=== PATIENT | male | born 1945 | race Caucasian/White ===

== ENCOUNTER 2016-08-10 10:08 | Emergency (ER) | payer OTHER ==
[~2016-08-10] VITALS: Wt 70.5 kg
--- NOTE | 2016-08-10 10:32 | ERD ---
ER Documentation Chief Complaint Date/Time DATE: 08/10/16 TIME: 10:31 Chief Complaint R. FOOT/HEEL PAIN HPI 71-year-old male who presented emergency department for right ankle/heel/foot pain/swelling. Patient stated that he was hiking yesterday, slipped, fell (3-5 foot high), landed on his right heel. Stated that he was unable to bear weight on the right foot after the fall. Denies headache, head injury, loss of consciousness, dizziness, dizziness prior to fall, blurry vision, changes in vision, photophobia, facial pain, ear pain, throat pain, difficulty swallowing, neck pain, shoulder pain, chest pain, cough , hemoptysis, abdominal pain, back pain, loss of appetite, nausea, vomiting, hematochezia, diarrhea, constipation, urinary symptoms, bladder and bowel incontinences, numbness or tingling sensation, recent travel, recent exposure to illness, recent antibiotic use in the last 3 months, fever, chills. Allergy: Penicillin. PMH: Hypertension. Medications: Lotensin. Surgery: Denies. Family history: Denies. Primary Social History: Stated that he is semiretired. Denies smoking, use of alcohol, use of illegal drugs. ROS All systems reviewed and are negative except as per history of present illness. Medications Home Meds Active Scripts Hydrocodone/Acetaminophen ([place] 5-325 Tablet) 1 Each Tablet, 1 TAB PO Q6H Y for PAIN, #20 TAB Prov:EMILI JUSTICE 08/10/16 Allergies Allergies: Coded Allergies: No Known Allergy (Unverified , 08/10/16) Physical Exam Vitals Vital Signs Date Time Temp Pulse Resp B/P Pulse Ox O2 Delivery O2 Flow Rate FiO2 08/10/16 13:18 98.3 78 18 156/65 100 Room Air 08/10/16 10:11 98.2 90 20 163/98 98 Physical Exam CONSTITUTIONAL: Well-appearing; well-nourished; in no apparent distress. HEAD: Normocephalic; atraumatic. EYES: Conjunctiva clear, sclera non-icteric, EOM intact. PERRL Ears: Hearing intact. EACs clear, TMs non-bulging, non-inflamed, translucent & mobile, ossicles normal appearance, No obstructions, no erythema, no discharges Nose: No obstructions. No polyps. No external lesions. Mucosa non-inflamed. No external lesions, septum and turbinates normal. No rhinorrhea. No discharges. Frontal sinus is non-tender to palpation. Maxillary sinus is non-tender to palpation. MOUTH: Moist mucous membranes, no lesion, no obstructions, no vesicles, no thrush, patent airway Throat: Uvula in midline. Right tonsil is +1 with no erythema, no exudate. Left tonsil is +1 with no erythema, no exudate. Tolerating secretions well. Good gag reflex. Patent airway. Neck: Supple, without lesions, bruits, or adenopathy. No mass. Thyroid non- enlarged and non-tender to palpation. CHEST: Symmetrical chest. Respirations even and not labored. No retractions noted. CARDIOVASCULAR: Normal S1, S2. RRR. No murmurs, gallops. RESPIRATORY: Normal chest excursion with respiration; breath sounds clear and equal bilaterally; no wheezes, rhonchi, or rales. Breathing even and unlabored. Speaking in clear, full, and complete sentences w/ ease. ABDOMEN: Normal bowel sounds normal. Soft, round, non-distended, non-guarding, no tenderness, no rebound, no organomegaly, no masses, no pulsating abdominal mass. No hernia. No peritoneal signs. : No CVA tenderness. BACK: Symmetrical shoulder. Spine is midline without deformity, tenderness. No evidence of trauma or deformity. PELVIS: Stable pelvis. No evidence of trauma or deformity. MUSCULOSKELETAL: Normal gait and station. No misalignment, asymmetry, crepitation, defects, tenderness, masses, effusions, decreased range of motion, instability, atrophy or abnormal strength or tone in the head, neck, spine, ribs , pelvis or extremities except right ankle has obvious deformity/swelling/ tenderness with limited range of motion and right foot has swelling with deformity/tenderness/limited range of motion. Right pedal pulse is good. Right knee is unremarkable. Bilateral hips are unremarkable. Left lower extremities unremarkable. Good and full range of motion of neck and spine. There is no C-spine/T-spine/L-spine swelling/tenderness/deformity and limitation in range of motion. No neurovascular deficits. No calf tenderness. NEUROVASCULAR: Distal pulses are present. Pedal pulse are present, equal, and normal. Capillary refills are < 2 seconds. NEUROLOGIC: Alert and oriented x4. Speaks full and clear sentences. Cranial Nerves II-XII normal. Sensation to pain, touch, and proprioception normal. Grossly unremarkable. No neurologic deficits. Romberg test is negative. PSYCHOLOGICAL: The patients mood and manner are appropriate. No hallucinations , delusions. Not SI. Not HI. Has the capacity to decide for self SKIN: Normal for age and ethnicity; warm; dry; good turgor; no apparent lesions or exudates. No rashes, hives, discoloration. Intact. Results 24 hrs Current Medications Medications (Trade) Dose Ordered Sig/Rubens Route PRN Reason Start Time Stop Time Status Last Admin Dose Admin Acetaminophen/ Hydrocodone Bitart ([place] (5/325)) 1 tab ONCE ONCE PO 08/10/16 11:00 08/10/16 11:01 DC 08/10/16 10:46 Procedures/MDM Examination: Please see physical examination. Disease process, medical treatment was explained to the patient and family member. They verbalized understanding and agreed with the diagnostic tests, medical treatment, and follow-up care. Radiology: X-ray of the right foot Impression: Mildly displaced fracture of the calcaneus. X-ray of the right ankle Impression: Lateral soft tissue swelling. Nondisplaced fracture of the calcaneus. X-ray of the lumbar spine Impression: Mild degenerative spondylosis. No acute fracture or compression. Case was discussed with supervising emergency room physician, Dr. Edward Hutchison who agreed with my medical decision making. He also stated that he will call ortho health education specialist for this patient. Treatment: [place]. Ortho shoe. Re-evaluation: Denies headache, dizziness, blurry vision, neck pain, shoulder pain, chest pain, back pain, abdominal pain. No episode of emesis in the emergency department. No neurovascular deficit prior to and after the application of right ortho shoe. No neurological deficits. Dr. Edward Hutchison and I read evidence-based practices regarding calcaneus which we gathered information the calcaneus fracture is usually managed by surgery which has good results but could still wait for about 10-14 days without surgery if there is no neurovascular deficits and good follow-up with a orthopedic doctor. Consultation: Dr. Schneider (ortho) by Dr. Edward Hutchison. Differential diagnosis: Fracture versus dislocation versus contusion versus sprain Medical decision m[age]-year-old male who presented emergency department for right ankle/heel/foot pain/swelling. Patient stated that he was hiking yesterday, slipped, fell (3-5 foot high), landed on his right heel. Stated that he was unable to bear weight on the right foot after the fall. Patient's complaint, patient's history about his complaint, my physical findings, diagnostic test results, my reevaluation are consistent my final diagnosis of mildly displaced fracture of the right calcaneus. Dr. Edward Hutchison spoke with also on-call, Dr. Schneider who suggested to put patient on right boot, nonweightbearing, crutches, follow-up with him or his own orthopedic doctor in the next week. Patient was instructed on all the suggestions of Dr. Edward Hutchison and Dr. Schneider (ortho). Patient verbalized understanding. Medications prescribed are the following: [place]. Patient and family member are made aware of the side effects and adverse reactions of the medications prescribed. Instructed on when to seek emergent and medical attention in case allergic/anaphylactic reactions or severe side effects and or adverse reactions to medications. Patient and family member verbalized understanding. Patient instructed to: Instructed to follow-up with his PCP in 24-48 hours. Follow-up with Ortho in the next 24-48 hours. Patient stated that he will make sure to see his PCP in the next 24-48 hours and have his PCP refer him to an orthopedic doctor. Dr. Schneider's (orthopedic doctor close) information was provided to the patient. Instructed to Call 911 for chest pain, shortness of breath. Advised to come back here in ED as soon as possible for severity of symptoms which includes but not limited to: any new symptoms; shortness of breath/difficulty of breathing; cardiovascular changes; severe gastrointestinal symptoms; signs and symptoms of bleeding and or infection; signs of compartment syndrome/neurovascular changes; neurological changes/deficits. Patient and family member verbalized understanding. Upon discharge, patient is alert and oriented x 4, speaks full and clear sentences, denies pain, has no neurological deficits, has no neurovascular deficits, difficulty of breathing. Breathing even and unlabored. Lung sounds are clear to auscultation. Not in distress. Appears comfortable. Ambulatory with steady gait. Appears satisfied with care provided here in ED. Departure Diagnosis: Primary Impression: Calcaneus fracture Additional Impressions: Ankle pain Foot injury Condition: Stable Additional Instructions: Patient instructed to: Instructed to follow-up with his PCP in 24-48 hours. Follow-up with Ortho in the next 24-48 hours. Patient stated that he will make sure to see his PCP in the next 24-48 hours and have his PCP refer him to an orthopedic doctor. Dr. Schneider's (orthopedic doctor close) information was provided to the patient. Instructed to Call 911 for chest pain, shortness of breath. Advised to come back here in ED as soon as possible for severity of symptoms which includes but not limited to: any new symptoms; shortness of breath/difficulty of breathing; cardiovascular changes; severe gastrointestinal symptoms; signs and symptoms of bleeding and or infection; signs of compartment syndrome/neurovascular changes; neurological changes/deficits. Patient and family member verbalized understanding. EMILI JUSTICE Aug 10, 2016 10:32
[2016-08-10] MEDS ORDERED: HYDROCODONE/APAP (5/325) TAB PO ONE (11:00)
--- NOTE | 2016-08-10 11:53 | RADRPT ---
PROCEDURE: XR Ankle. CLINICAL INDICATION: Pain. TECHNIQUE: AP, lateral, and oblique views of the left ankle were performed. COMPARISON: None. FINDINGS: The mortise joint appears intact.. There is lateral soft tissue swelling. There is a nondisplaced fr acture of the calcaneus better seen on the foot radiograph. There are no other fractures identified . Alignment appears anatomic. IMPRESSION: 1. Lateral soft tissue swelling. 2. Nondisplaced fracture of the calcaneus. RPTAT: QQ .Gregor Rosas MD, MD Date Time Electronically viewed and signed by .Gregor Rosas MD, MD on 08/10/2016 11:53 .L/
--- NOTE | 2016-08-10 11:54 | RADRPT ---
PROCEDURE: XR Foot. CLINICAL INDICATION: Right foot pain status post fall. TECHNIQUE: AP, lateral, and oblique views of the right foot are available for review. COMPARISON: None available FINDINGS: There is a minimally displaced fracture of the calcaneus extending from the subtalar joint to the po sterior inferior aspect. Slightly displaced cortical fragment is seen at the lateral aspect on obli que view. There is no evidence of dislocation. Remainder of the bones of the foot appear intact. . IMPRESSION: Mildly displaced fracture of the calcaneus. RPTAT: QQ .Gregor Rosas MD, MD Date Time Electronically viewed and signed by .Gregor Rosas MD, on 08/10/2016 11:54 .L/
--- NOTE | 2016-08-10 11:55 | RADRPT ---
PROCEDURE: XR Lumbar Spine. CLINICAL INDICATION: Low back pain. Status post fall TECHNIQUE: AP, lateral, and lateral lumbosacral junction views of the lumbar spine are available f or review COMPARISON: None available FINDINGS: The normal lumbar lordosis is preserved. No acute fracture or compression is seen. The vertebral bod y heights are all normal. Intervertebral discs are normal in height. On the frontal view, there is n ormal alignment. Paraspinous soft tissues are grossly unremarkable. There is mild degenerative spond ylosis throughout the lumbar spine. IMPRESSION: 1. Mild degenerative spondylosis. 2. No acute fracture or compression. RPTAT: QQ .Gregor Rosas MD, MD Date Time Electronically viewed and signed by .Gregor Rosas MD, on 08/10/2016 11:55 .L/
[2016-08-10] MEDS ORDERED: HYDR-906 PO (12:28)
[2016-08-10 13:18] VITALS: BP 156/65; PULSE 78; RESP 18; TEMP 98.3
== END 2016-08-10 13:18 | disposition home or self-care (01) ==
LOC: FTE 10:08
DX: S92.001A Unspecified fracture of right calcaneus, initial encounter for closed fracture (principal); S99.911A Unspecified injury of right ankle, initial encounter; I10 Essential (primary) hypertension; W17.89XA Other fall from one level to another, initial encounter; Y92.9 Unspecified place or not applicable
CPT/HCPCS: 72100; 73630